=== PATIENT | male | born 1965 | race Caucasian/White ===

== ENCOUNTER 2017-01-20 13:28 | Emergency (ER) | payer OTHER ==
[~2017-01-20] VITALS: Ht 167.6 cm; Wt 95.6 kg
[2017-01-20 13:30] VITALS: Ht 167.6 cm; Wt 95.6 kg
[2017-01-20] MEDS ORDERED: TETRACAINE 0.5% 4 ML OPH RIGHT EYE ONE (14:30)
--- NOTE | 2017-01-20 16:41 | ERD ---
ER Documentation Chief Complaint Chief Complaint Patient states that he has blurry vision (thins its an Opthalmic emergency) HPI This 51-year-old male complains of blurry vision over the last 2 days. He has a remote history of retinal detachment 7 years on the left ago and it feels similar. He denies any gross visual field deficits. He has a sensation of waviness in his visual field as well as flashing lights of the right eye. He denies pain, discharge. Patient has a history of laser surgery over one year ago in the affected eye. She does not have a personal ophthalmology [place] in the [place] as [place] previous treatment [place]. ROS All systems reviewed and are negative except as per history of present illness. Allergies Allergies: Coded Allergies: No Known Allergy (Unverified , 01/20/17) PMhx/Soc History of Surgery: Yes (retianl detachment) Anesthesia Reaction: No Hx Neurological Disorder: No Hx Respiratory Disorders: No Hx Cardiac Disorders: No Hx Psychiatric Problems: No Hx Miscellaneous Medical Probl: No Hx Alcohol Use: No Hx Substance Use: No Hx Tobacco Use: No Smoking Status: Never smoker Physical Exam Vitals Vital Signs Date Time Temp Pulse Resp B/P Pulse Ox O2 Delivery O2 Flow Rate FiO2 01/20/17 13:30 97.8 79 20 114/74 97 Physical Exam Const: [], [id number], pleasant. Head: Atraumatic Eyes: Normal Conjunctiva. Eyes PERRLA and extraocular movements intact. Intraocular pressure 23 and 21 on affected eye. Visual acuity shows no acute abnormalities. ENT: Normal External Ears, Nose and Mouth. Neck: Full range of motion..~ No meningismus. Resp: Clear to auscultation bilaterally Cardio: Regular rate and rhythm, no murmurs Abd: Soft, non tender, non distended. Normal bowel sounds Skin: No petechiae or rashes Back: No midline or flank tenderness Ext: No cyanosis, or edema Neur: Awake and alert Psych: Normal Mood and Affect Results 24 hrs Current Medications Medications (Trade) Dose Ordered Sig/Gini Route PRN Reason Start Time Stop Time Status Last Admin Dose Admin Tetracaine HCl (Tetracaine 0.5% Steri-Unit [place]) 1 drop ONCE ONCE RIGHT EYE 01/20/17 14:30 01/20/17 14:31 DC Procedures/MDM Preliminary ultrasound read of the retina shows likely retinal detachment. Formal reading pending. Patient shows no evidence to suggest visual loss, retinal artery occlusion, optic neuritis, orbital cellulitis, acute glaucoma. Advised recommendation for transfer of higher-level care doctor for ophthalmology services which are not available here. Patient declined hospital transfer and would like to a personal transportation to nurse ophthalmology services reassured patient was given local resources for home ophthalmology services virtualization engineer again made to transfer the patient declined and will be signed out AMA with aftercare instructions for urgent ophthalmology follow-up. Departure Diagnosis: Primary Impression: Retinal detachment Laterality: right Qualified Code: H33.21 - Right retinal detachment Patient Instructions: [place] Form- 1, Retinal Detachment Additional Instructions: Likely retinal detachment seen on ultrasound. You have declined hospital transfer in favor of personal transportation. Recommend ophthalmology within the next day for further evaluation and treatment. Recommend further evaluation at [facility] [place] or facilities with ophthalmology services. MICHAEL HAN MD Jan 20, 2017 16:41
--- NOTE | 2017-01-20 16:41 | ERD ---
ER Documentation Chief Complaint Chief Complaint Patient states that he has blurry vision (thins its an Opthalmic emergency) HPI This 51-year-old male complains of blurry vision over the last 2 days. He has a remote history of retinal detachment 7 years on the left ago and it feels similar. He denies any gross visual field deficits. He has a sensation of waviness in his visual field as well as flashing lights of the right eye. He denies pain, discharge. Patient has a history of laser surgery over one year ago in the affected eye. She does not have a personal ophthalmology [place] in the [place] as [place] previous [place]. ROS All systems reviewed and are negative except as per history of present illness. Allergies Allergies: Coded Allergies: No Known Allergy (Unverified , 01/20/17) PMhx/Soc History of Surgery: Yes (retianl detachment) Anesthesia Reaction: No Hx Neurological Disorder: No Hx Respiratory Disorders: No Hx Cardiac Disorders: No Hx Psychiatric Problems: No Hx Miscellaneous Medical Probl: No Hx Alcohol Use: No Hx Substance Use: No Hx Tobacco Use: No Smoking Status: Never smoker Physical Exam Vitals Vital Signs Date Time Temp Pulse Resp B/P Pulse Ox O2 Delivery O2 Flow Rate FiO2 01/20/17 13:30 97.8 79 20 114/74 97 Physical Exam Const: [], [id number], pleasant. Head: Atraumatic Eyes: Normal Conjunctiva. Eyes PERRLA and extraocular movements intact. Intraocular pressure 23 and 21 on affected eye. Visual acuity shows no acute abnormalities. ENT: Normal External Ears, Nose and Mouth. Neck: Full range of motion..~ No meningismus. Resp: Clear to auscultation bilaterally Cardio: Regular rate and rhythm, no murmurs Abd: Soft, non tender, non distended. Normal bowel sounds Skin: No petechiae or rashes Back: No midline or flank tenderness Ext: No cyanosis, or edema Neur: Awake and alert Psych: Normal Mood and Affect Results 24 hrs Current Medications Medications (Trade) Dose Ordered Sig/Gini Route PRN Reason Start Time Stop Time Status Last Admin Dose Admin Tetracaine HCl (Tetracaine 0.5% Steri-Unit [place]) 1 drop ONCE ONCE RIGHT EYE 01/20/17 14:30 01/20/17 14:31 DC Procedures/MDM Preliminary ultrasound read of the retina shows likely retinal detachment. Formal reading pending. Patient shows no evidence to suggest visual loss, retinal artery occlusion, optic neuritis, orbital cellulitis, acute glaucoma. Advised recommendation for transfer of higher-level care doctor for ophthalmology services which are not available here. Patient declined hospital transfer and would like to a personal transportation to nurse ophthalmology services reassured patient was given local resources for home ophthalmology services design sales consultant again made to transfer the patient declined and will be signed out AMA with aftercare instructions for urgent ophthalmology follow-up. Departure Diagnosis: Primary Impression: Retinal detachment Laterality: right Qualified Code: H33.21 - Right retinal detachment Patient Instructions: [place] Form- 1, Retinal Detachment Additional Instructions: Likely retinal detachment seen on ultrasound. You have declined hospital transfer in favor of personal transportation. Recommend ophthalmology within the next day for further evaluation and treatment. Recommend further evaluation at [facility] [place] or facilities with ophthalmology services. MICHAEL HAN MD Jan 20, 2017 16:41
--- NOTE | 2017-01-20 17:51 | RADRPT ---
PROCEDURE: Ultrasound soft tissue CLINICAL INDICATION: Right eye visual change. TECHNIQUE: An ultrasound of the bilateral globes is performed utilizing ortiz scale and Doppler jl ging. COMPARISON: None. FINDINGS: There is a linear echogenic structure within the posterior vitreous body, suspicious for a retinal d etachment. Additional echogenic material is seen within the right vitreous body, possibly vitreous h emorrhage. The bilateral anterior chambers, bilateral lenses, and left vitreous body are unremarkable. IMPRESSION: 1. Linear echogenic structure within the posterior vitreous body, suspicious for a retinal detachme nt. Additional echogenic material is seen within the right vitreous body, possibly vitreous hemorrha ge. Emergent ophthalmology referral is recommended. 2. Normal appearance of the left globe. Call report: A call report of the findings was made to Dr. Flower at 05:46 p.m. on 01/20/2017. RPTAT: HTAR .Shen Villalpando MD, MD Date Time Electronically viewed and signed by .Shen Villalpando MD, MD on 01/20/2017 17:50 .R/
== END 2017-01-20 17:08 | disposition home or self-care (01) ==
LOC: FTE 13:28
DX: H33.21 Serous retinal detachment, right eye (principal)
CPT/HCPCS: 76536